=== PATIENT | female | born 1945 ===

== ENCOUNTER 2025-04-05 11:45 | Inpatient (IN) | payer OTHER ==
[~2025-04-05] VITALS: Ht 149.9 cm; Wt 52.2 kg
[2025-04-05 12:36] VITALS: BP 138/80
[2025-04-05] MEDS ORDERED: METFORMIN HCL500 M3 PO (12:37)
[2025-04-05] MEDS ORDERED: VASOTEC2.5 MG PO (12:38)
[2025-04-05] MEDS ORDERED: SIMVASTATIN5 MG PO (12:38)
[2025-04-05] MEDS ORDERED: SYNTHROID100 MCG PO (12:39)
[2025-04-05] MEDS ORDERED: CLONAZEPAM0.5 MG PO (12:39)
[2025-04-11] MEDS ORDERED: METRONIDAZOLE/SODIUM CHLORIDE 500 MG/100 ML PIGGYBACK IV ONE (07:41)
[2025-04-11] MEDS ORDERED: CEFTRIAXONE SODIUM 2,000 MG VIAL ONE (07:41)
[2025-04-11] MEDS ORDERED: MORPHINE SULFATE 4 MG/ML CARTRIDGE IV PRN (14:15)
[2025-04-11] MEDS ORDERED: OxyCODONE HCL 5 MG TABLET (ROXICODONE) PO PRN (14:15)
[2025-04-11] MEDS ORDERED: DEXTROSE 50 % IN WATER 0.5 G/ML DISP.SYRIN IV PRN (14:15)
[2025-04-11] MEDS ORDERED: ONDANSETRON HCL 2 MG/ML VIAL IV PRN (14:15)
[2025-04-11] MEDS ORDERED: RINGERS SOLUTION,LACTATED 1,000 ML IV SCH (14:15)
[2025-04-11] MEDS ORDERED: MORPHINE SULFATE 2 MG/ML CARTRIDGE IV ONE (15:05)
[2025-04-11] MEDS ORDERED: INSULIN LISPRO 1,000 UNIT/10 ML UNITS SUBCUTANEO PRN (15:15)
[2025-04-11] MEDS ORDERED: CLONAZEPAM 0.5 MG TABLET PO PRN (15:15)
[2025-04-11] MEDS ORDERED: ENALAPRILAT DIHYDRATE 1.25 MG/ML VIAL IV PRN (15:15)
[2025-04-11] MEDS ORDERED: DEXTROSE 50 % IN WATER 0.5 G/ML VIAL IV PRN (15:15)
[2025-04-11 15:42] LABS: BASO % 0.2 % (0.1-1.2); EOS # 0.04 (0.04-0.54); EOS % 0.3 % (0.7-7.0); HEMATOCRIT 34.5 % (34.1-44.9); HEMOGLOBIN 11.4 g/dL (11.2-15.7); LYMPH # 2.58 (1.18-3.74); LYMPH % 22.1 % (19.3-53.1); MEAN CORPUSCULAR HEMOGLOBIN 30.7 pg (25.6-32.2); MONO # 0.84 (0.24-0.82); MONO % 7.2 % (4.7-12.5); NEUT # 8.15 (1.56-6.13); NEUT % 69.9 % (34.0-71.1); PLATELET COUNT 227 K/uL (163-369); RED BLOOD COUNT 3.71 M/uL (3.93-5.22); RED CELL DISTRIBUTION WIDTH 13.8 % (11.6-14.4)
[2025-04-11] MEDS ORDERED: METOCLOPRAMIDE HCL 5 MG/ML VIAL IV SCH (17:00)
[2025-04-11] MEDS ORDERED: CELECOXIB 200 MG CAPSULE PO SCH (17:00)
[2025-04-11] MEDS ORDERED: HYOSCYAMINE SULFATE 0.125 MG TAB.SUBL SL SCH (17:00)
[2025-04-11] MEDS ORDERED: SIMETHICONE 125 MG CAPSULE PO SCH (17:00)
[2025-04-11] MEDS ORDERED: GABAPENTIN 300 MG CAPSULE PO SCH (17:00)
[2025-04-11] MEDS ORDERED: SIMVASTATIN 10 MG TABLET PO SCH (17:00)
[2025-04-11] MEDS ORDERED: POLYETHYLENE GLYCOL 3350 17 GM BLIST.PACK PO SCH (17:00)
[2025-04-11] MEDS ORDERED: ACETAMINOPHEN 500 MG GEL..CAP PO SCH (20:00)
[2025-04-11] MEDS ORDERED: ONDANSETRON HCL 2 MG/ML VIAL ONE (20:55)
[2025-04-11] MEDS ORDERED: ONDANSETRON HCL 2 MG/ML VIAL IV ONE (21:00)
[2025-04-11] MEDS ORDERED: FAMOTIDINE/PF 20 MG/2 ML VIAL IV PUSH SCH (21:00)
[2025-04-11 21:59] VITALS: BP 139/80; O2SAT 95
[2025-04-12 00:03] VITALS: BP 122/73; O2SAT 99
[2025-04-12] MEDS ORDERED: LEVOTHYROXINE SODIUM 100 MCG TABLET PO SCH (06:00)
[2025-04-12 06:23] LABS: BASO % 0.1 % (0.1-1.2); HEMATOCRIT 34.2 % (34.1-44.9); HEMOGLOBIN 11.5 g/dL (11.2-15.7); LYMPH # 1.06 (1.18-3.74); LYMPH % 8.7 % (19.3-53.1); MEAN CORPUSCULAR HEMOGLOBIN 30.4 pg (25.6-32.2); MONO # 0.94 (0.24-0.82); MONO % 7.7 % (4.7-12.5); NEUT # 10.11 (1.56-6.13); NEUT % 83.3 % (34.0-71.1); PLATELET COUNT 205 K/uL (163-369); RED BLOOD COUNT 3.78 M/uL (3.93-5.22); RED CELL DISTRIBUTION WIDTH 13.4 % (11.6-14.4)
[2025-04-12 08:09] VITALS: BP 112/70; O2SAT 94
[2025-04-12 08:43] LABS: ALBUMIN 3.2 gm/dL (3.4-5.0); CALCIUM 8.7 mg/dL (8.5-10.1); CREATININE SERUM 0.67 mg/dL (0.55-1.02); GFR 84.9; MAGNESIUM 1.7 mg/dL (1.8-2.4); PHOSPHOROUS 3.2 mg/dL (2.5-4.9)
[2025-04-12] MEDS ORDERED: ENALAPRIL MALEATE 2.5 MG TABLET PO SCH (09:00)
[2025-04-12] MEDS ORDERED: LACTULOSE 20 G/30 ML BLIST.PACK PO SCH (09:00)
[2025-04-12] MEDS ORDERED: LACTOBACILLUS ACIDOPHILUS 1 CAP CAP PO SCH (09:00)
[2025-04-12 12:03] LABS: POTASSIUM 3.99 mEq/L (3.5-5.1)
[2025-04-12 16:35] VITALS: BP 115/68; O2SAT 98
[2025-04-12] MEDS ORDERED: ENOXAPARIN SODIUM 40 MG/0.4 ML SYRINGE SUBCUTANEO SCH (17:00)
[2025-04-13 00:25] VITALS: BP 126/72; O2SAT 100
[2025-04-13] MEDS ORDERED: ENOXAPARIN SODIUM 40 MG/0.4 ML SYRINGE SUBCUTANEO SCH (09:00)
[2025-04-13 14:43] VITALS: BP 128/76; O2SAT 96
[2025-04-13 16:51] VITALS: BP 141/78; O2SAT 95
[2025-04-14 00:48] VITALS: BP 145/82; O2SAT 94
[2025-04-14 08:15] VITALS: BP 152/72; O2SAT 94
== END 2025-04-14 12:33 | disposition home or self-care (01) | DRG 330 ==
LOC: O/R 04-11 07:37 → SURG 04-11 07:37 → SURH 04-11 11:45 → SURG 04-11 15:20
PROVIDERS: ADMIT Colon & Rectal Surgery; ATTEND Colon & Rectal Surgery
PROC: 0DBP4ZZ Excision of Rectum, Percutaneous Endoscopic Approach (ICD-10-PCS; 2025-04-11)
PROC: 0DJD8ZZ Inspection of Lower Intestinal Tract, Via Natural or Artificial Opening Endoscopic (ICD-10-PCS; 2025-04-11)
PROC: 0DTN4ZZ Resection of Sigmoid Colon, Percutaneous Endoscopic Approach (ICD-10-PCS; principal; 2025-04-11 15:00)
DX: K59.02 Outlet dysfunction constipation (principal); K92.1 Melena; K57.30 Diverticulosis of large intestine without perforation or abscess without bleeding